=== PATIENT | male | born 1945 | race Caucasian/White ===

== ENCOUNTER 2023-08-16 07:08 | Outpatient (CLI) | payer OTHER | END 2023-08-16 07:17 | disposition home or self-care (01) | LOC: RX STUDY 07:08 | PROVIDERS: ATTEND Surgery | DX: C20 Malignant neoplasm of rectum (principal); R59.0 Localized enlarged lymph nodes; K62.89 Other specified diseases of anus and rectum; K62.5 Hemorrhage of anus and rectum; Z93.3 Colostomy status ==

== ENCOUNTER 2023-12-14 09:45 | Inpatient (IN) | payer OTHER ==
[~2023-12-14] VITALS: Ht 162.6 cm; Wt 70.3 kg
[2023-12-14] MEDS ORDERED: ATIVAN1 M1 (11:05)
[2023-12-14 11:15] LABS: HEMATOCRIT 35.9 % (39.0-48.0); HEMOGLOBIN 12.1 g/dL (13-16.00); MEAN CELL VOLUME 94.3 fL (80.0-100.00); MEAN CORPUSCULAR HEMOGLOBIN 31.9 pg (27.00-32.0); MEAN CORPUSCULAR HGB CONC 33.8 g/dl (32.0-36.0); PH,URINE 5.5 (5.0-8.0); PLATELET COUNT 249 K/uL (150-450); RED BLOOD COUNT 3.81 M/uL (4.00-6.00); RED CELL DISTRIBUTION WIDTH 14.4 % (11.5-14.5); URINE APPEARANCE Clear; URINE BILIRRUBIN Negative (NEGATIVE); URINE BLOOD Negative; URINE COLOR Yellow; URINE GLUCOSE Negative (NEGATIVE); URINE KETONE Negative (NEGATIVE); URINE LEUKOCYTE Negative; URINE NITRATE Negative; URINE PROTEIN Negative (NEGATIVE); URINE UROBILINOGEN 0.2 E.U./dl
[2023-12-14 11:20] LABS: URINE BACTERIA 18.8 uL (0.0-1933); URINE RBC 2.7 uL (0.0-20.8); URINE WBC 10.5 uL (0.0-23.2)
[2023-12-14 11:28] LABS: URINE CAST 1.22 uL (0.0-1.40)
[2023-12-14 11:44] LABS: INR 0.96; PARTIAL THROMBOPLASTIN TIME 28.7 SECONDS (22.0-34.0); PROTHROMBIN TIME 10.1 SECONDS (9.0-11.5)
[2023-12-14 12:08] LABS: BILIRUBIN TOTAL 0.41 mg/dL (0.3-1.2); CALCIUM 9.6 mg/dL (8.5-10.1); CREATININE SERUM 0.9 mg/dL (0.70-1.30); GFR 81.61; GLOBULINA 3.6 G/DL (2.4-3.5); POTASSIUM 4.3 mEq/L (3.5-5.1); TOTAL PROTEIN 7.6 gm/dL (6.4-8.2)
[2023-12-21] MEDS ORDERED: BUPROPION XL300 MG (08:08)
[2023-12-21] MEDS ORDERED: LATANOPROST2.5 ML (08:08)
[2023-12-21] MEDS ORDERED: SULINDAC200 MG (08:08)
[2023-12-21] MEDS ORDERED: ATORVASTATIN CA20 MG (08:09)
[2023-12-21] MEDS ORDERED: MEMANTINE HCL10 MG (08:09)
[2023-12-21] MEDS ORDERED: LOSARTAN POTASS25 MG (08:09)
[2023-12-21] MEDS ORDERED: LIDOCAINE HCL 2%/EPINEPHRINE 20ML VIAL IJ ONE (09:45)
[2023-12-21] MEDS ORDERED: METRONIDAZOLE/SODIUM CHLORIDE 500 MG/100 ML PIGGYBACK IV ONE (09:45)
[2023-12-21] MEDS ORDERED: CHLORHEXIDINE GLUCONATE 120 ML BOTTLE TOP ONE (09:45)
[2023-12-21] MEDS ORDERED: CEFTRIAXONE SODIUM 2,000 MG VIAL IV ONE (09:45)
[2023-12-21] MEDS ORDERED: BUPIVACAINE HCL/PF 0.25% 30ML VIAL InF ONE (09:45)
[2023-12-21] MEDS ORDERED: MORPHINE SULFATE 4 MG/ML CARTRIDGE IV PRN (12:30)
[2023-12-21] MEDS ORDERED: ONDANSETRON HCL 2 MG/ML VIAL IV PRN (12:30)
[2023-12-21] MEDS ORDERED: OxyCODONE HCL 5 MG TABLET (ROXICODONE) PO PRN (12:30)
[2023-12-21] MEDS ORDERED: RINGERS SOLUTION,LACTATED 1,000 ML IV SCH (12:30)
[2023-12-21] MEDS ORDERED: HYOSCYAMINE SULFATE 0.125 MG TAB.SUBL SL SCH (13:00)
[2023-12-21] MEDS ORDERED: SUGAMMADEX SODIUM 200 MG/2 ML VIAL IV ONE (16:30)
[2023-12-21] MEDS ORDERED: GABAPENTIN 300 MG CAPSULE PO SCH (17:00)
[2023-12-21] MEDS ORDERED: LACTOBACILLUS ACIDOPHILUS 1 CAP CAP PO SCH (17:00)
[2023-12-21] MEDS ORDERED: METRONIDAZOLE/SODIUM CHLORIDE 500 MG/100 ML PIGGYBACK IV SCH (17:00)
[2023-12-21] MEDS ORDERED: ACETAMINOPHEN 500 MG GEL..CAP PO SCH (18:00)
[2023-12-21] MEDS ORDERED: FAMOTIDINE/PF 20 MG/2 ML VIAL IV PUSH SCH (21:00)
[2023-12-21] MEDS ORDERED: CIPROFLOXACIN IN 5 % DEXTROSE 400 MG/200 ML PIGGYBAG IV SCH (21:00)
[2023-12-21] MEDS ORDERED: LORazepam 1 MG TABLET PO SCH (21:00)
[2023-12-22 08:19] LABS: HEMOGLOBIN 10.4 g/dL (13-16.00); MEAN CELL VOLUME 92.3 fL (80.0-100.00); MEAN CORPUSCULAR HEMOGLOBIN 32.1 pg (27.00-32.0); MEAN CORPUSCULAR HGB CONC 34.8 g/dl (32.0-36.0); PLATELET COUNT 220 K/uL (150-450); RED BLOOD COUNT 3.25 M/uL (4.00-6.00); RED CELL DISTRIBUTION WIDTH 13.7 % (11.5-14.5)
[2023-12-22 08:56] LABS: ALBUMIN 2.7 gm/dL (3.4-5.0); CALCIUM 8.2 mg/dL (8.5-10.1); CREATININE SERUM 0.85 mg/dL (0.70-1.30); GFR 87.17; MAGNESIUM 1.5 mg/dL (1.8-2.4); PHOSPHOROUS 3.1 mg/dL (2.5-4.9); POTASSIUM 3.91 mEq/L (3.5-5.1)
[2023-12-22] MEDS ORDERED: MEMANTINE HCL 10 MG TABLET PO SCH (09:00)
[2023-12-22] MEDS ORDERED: BUPROPION HCL 150 MG TABLET.SA PO SCH (09:00)
[2023-12-22] MEDS ORDERED: TAMSULOSIN HCL 0.4 MG CAP PO SCH (09:00)
[2023-12-22] MEDS ORDERED: LOSARTAN POTASSIUM 25 MG TABLET PO SCH (09:00)
[2023-12-22] MEDS ORDERED: MAGNESIUM SULFATE IN WATER 50 ML IV NR (10:45)
[2023-12-22] MEDS ORDERED: SOD FERRIC GLUC COMPLX/SUCROSE 62.5 MG in 0.9 % SODIUM CHLORIDE 50 ML IV SCH (12:00)
[2023-12-22] MEDS ORDERED: Cyanocobalamin/Mecobalamin 1 TAB.SL SL SCH (12:00)
[2023-12-22] MEDS ORDERED: ENOXAPARIN SODIUM 40 MG/0.4 ML SYRINGE SUBCUTANEO SCH (17:00)
[2023-12-23 08:36] LABS: HEMATOCRIT 26.7 % (39.0-48.0); HEMOGLOBIN 9.2 g/dL (13-16.00); MEAN CELL VOLUME 92.4 fL (80.0-100.00); MEAN CORPUSCULAR HEMOGLOBIN 31.9 pg (27.00-32.0); MEAN CORPUSCULAR HGB CONC 34.5 g/dl (32.0-36.0); PLATELET COUNT 190 K/uL (150-450); RED BLOOD COUNT 2.88 M/uL (4.00-6.00); RED CELL DISTRIBUTION WIDTH 14.2 % (11.5-14.5)
[2023-12-23 08:46] LABS: CALCIUM 8.5 mg/dL (8.5-10.1); CREATININE SERUM 0.88 mg/dL (0.70-1.30); GFR 83.75; MAGNESIUM 1.6 mg/dL (1.8-2.4); POTASSIUM 3.72 mEq/L (3.5-5.1)
[2023-12-23 08:58] LABS: PHOSPHOROUS 1.3 mg/dL (2.5-4.9)
[2023-12-23] MEDS ORDERED: ENOXAPARIN SODIUM 40 MG/0.4 ML SYRINGE SUBCUTANEO SCH (09:00)
[2023-12-23] MEDS ORDERED: MAGNESIUM SULFATE IN WATER 50 ML IV NR (09:30)
[2023-12-23] MEDS ORDERED: POTASSIUM PHOS,M-BASIC-D-BASIC 3 MM/ML VIAL IV NR (09:30)
[2023-12-23] MEDS ORDERED: AA 4.25%/CAL/LYTES/DEXT 5% 1,000 ML PERIFERAL SCH (17:45)
[2023-12-23] MEDS ORDERED: GABAPENTIN 300 MG CAPSULE PO SCH (21:00)
[2023-12-23 22:33] LABS: CALCIUM 8.1 mg/dL (8.5-10.1); CHOL HDL RATIO 1.4 (0-5.0); CREATININE SERUM 0.83 mg/dL (0.70-1.30); GFR 89.6; POTASSIUM 3.09 mEq/L (3.5-5.1)
[2023-12-24 06:51] LABS: HEMATOCRIT 28.9 % (39.0-48.0); MEAN CELL VOLUME 93.3 fL (80.0-100.00); MEAN CORPUSCULAR HEMOGLOBIN 32.4 pg (27.00-32.0); MEAN CORPUSCULAR HGB CONC 34.7 g/dl (32.0-36.0); PLATELET COUNT 218 K/uL (150-450); RED CELL DISTRIBUTION WIDTH 13.9 % (11.5-14.5)
[2023-12-24 07:18] LABS: CALCIUM 8.3 mg/dL (8.5-10.1); CREATININE SERUM 0.66 mg/dL (0.70-1.30); GFR 116.73; MAGNESIUM 2.1 mg/dL (1.8-2.4); POTASSIUM 3.25 mEq/L (3.5-5.1)
[2023-12-24 07:30] LABS: PHOSPHOROUS 1.6 mg/dL (2.5-4.9)
[2023-12-24] MEDS ORDERED: ENALAPRILAT DIHYDRATE 1.25 MG/ML VIAL IV PRN (10:15)
[2023-12-24] MEDS ORDERED: POTASSIUM PHOS,M-BASIC-D-BASIC 3 MM/ML VIAL IV NR (10:15)
[2023-12-24] MEDS ORDERED: AMINO ACIDS 4.25 %/DEXTROSE 5% 1,000 ML PERIFERAL SCH (17:00)
[2023-12-25] MEDS ORDERED: MORPHINE SULFATE 4 MG/ML CARTRIDGE IV PRN (03:00)
[2023-12-25] MEDS ORDERED: POTASSIUM PHOS,M-BASIC-D-BASIC 15 MM in 0.9 % SODIUM CHLORIDE 250 ML IV NR (13:15)
[2023-12-25] MEDS ORDERED: POTASSIUM CHLORIDE IN WATER 100 ML IV NR (15:59)
[2023-12-26 08:56] LABS: HEMATOCRIT 30.4 % (39.0-48.0); HEMOGLOBIN 10.4 g/dL (13-16.00); MEAN CELL VOLUME 94.1 fL (80.0-100.00); MEAN CORPUSCULAR HEMOGLOBIN 32.1 pg (27.00-32.0); MEAN CORPUSCULAR HGB CONC 34.2 g/dl (32.0-36.0); PLATELET COUNT 274 K/uL (150-450); RED BLOOD COUNT 3.23 M/uL (4.00-6.00); RED CELL DISTRIBUTION WIDTH 13.9 % (11.5-14.5)
[2023-12-26 09:45] LABS: CALCIUM 8.5 mg/dL (8.5-10.1); CREATININE SERUM 0.69 mg/dL (0.70-1.30); GFR 110.89; MAGNESIUM 2.2 mg/dL (1.8-2.4); PHOSPHOROUS 2.9 mg/dL (2.5-4.9); POTASSIUM 3.39 mEq/L (3.5-5.1)
[2023-12-26] MEDS ORDERED: POTASSIUM CHLORIDE IN WATER 100 ML IV NR (14:00)
[2023-12-27] MEDS ORDERED: MORPHINE SULFATE 4 MG/ML CARTRIDGE IV PRN (08:30)
[2023-12-27 09:49] LABS: CALCIUM 8.5 mg/dL (8.5-10.1); CREATININE SERUM 0.66 mg/dL (0.70-1.30); GFR 116.73; MAGNESIUM 2.1 mg/dL (1.8-2.4); PHOSPHOROUS 2.7 mg/dL (2.5-4.9); POTASSIUM 3.91 mEq/L (3.5-5.1)
[2023-12-27] MEDS ORDERED: [UNRECOGNIZED DRUG - SUPPLY] IJ SCH (20:00)
[2023-12-27] MEDS ORDERED: TPN (Para identificar pt. en TPN) IV SCH (20:00)
[2023-12-28 09:59] LABS: CALCIUM 8.8 mg/dL (8.5-10.1); CREATININE SERUM 0.65 mg/dL (0.70-1.30); GFR 118.8; MAGNESIUM 2.2 mg/dL (1.8-2.4); PHOSPHOROUS 3.1 mg/dL (2.5-4.9); POTASSIUM 3.72 mEq/L (3.5-5.1)
[2023-12-29 11:30] LABS: CALCIUM 9.3 mg/dL (8.5-10.1); CREATININE SERUM 0.64 mg/dL (0.70-1.30); GFR 120.95; PHOSPHOROUS 2.6 mg/dL (2.5-4.9); POTASSIUM 3.3 mEq/L (3.5-5.1)
[2023-12-29] MEDS ORDERED: POTASSIUM CHLORIDE IN WATER 100 ML IV STA (11:37)
[2023-12-30 07:28] LABS: HEMATOCRIT 31.7 % (39.0-48.0); HEMOGLOBIN 11.1 g/dL (13-16.00); MEAN CELL VOLUME 93.4 fL (80.0-100.00); MEAN CORPUSCULAR HEMOGLOBIN 32.7 pg (27.00-32.0); PLATELET COUNT 303 K/uL (150-450); RED CELL DISTRIBUTION WIDTH 13.9 % (11.5-14.5)
[2023-12-30] MEDS ORDERED: ENOXAPARIN SODIUM 40 MG/0.4 ML SYRINGE SUBCUTANEO SCH (17:00)
[2023-12-31 06:49] LABS: HEMATOCRIT 33.8 % (39.0-48.0); HEMOGLOBIN 11.8 g/dL (13-16.00); MEAN CELL VOLUME 91.9 fL (80.0-100.00); MEAN CORPUSCULAR HEMOGLOBIN 31.9 pg (27.00-32.0); MEAN CORPUSCULAR HGB CONC 34.8 g/dl (32.0-36.0); PLATELET COUNT 344 K/uL (150-450); RED BLOOD COUNT 3.68 M/uL (4.00-6.00); RED CELL DISTRIBUTION WIDTH 13.8 % (11.5-14.5)
[2023-12-31 07:06] LABS: INR < 0.93; PARTIAL THROMBOPLASTIN TIME 28.1 SECONDS (22.0-34.0); PROTHROMBIN TIME 9.8 SECONDS (9.0-11.5)
[2023-12-31 07:22] LABS: ALBUMIN 2.9 gm/dL (3.4-5.0); BILIRUBIN TOTAL 0.58 mg/dL (0.3-1.2); BILIRUBIN,CONJUGATED 0.29 mg/dL (0.0-0.2); BILIRUBIN,UNCONJUGATED 0.29 mg/dL (0.0-0.6); CALCIUM 8.9 mg/dL (8.5-10.1); CHOL HDL RATIO 2.4 (0-5.0); CREATININE SERUM 0.72 mg/dL (0.70-1.30); GFR 105.58; GLOBULINA 3.7 G/DL (2.4-3.5); POTASSIUM 3.03 mEq/L (3.5-5.1); TOTAL PROTEIN 6.6 gm/dL (6.4-8.2)
[2023-12-31 10:52] LABS: UREA CLEARANCE 25.7 ML/MIN
[2023-12-31] MEDS ORDERED: ONDANSETRON HCL 2 MG/ML VIAL IV PRN (17:15)
[2023-12-31] MEDS ORDERED: POTASSIUM CHLORIDE IN WATER 100 ML IV ONE (20:45)
[2023-12-31] MEDS ORDERED: MORPHINE SULFATE 4 MG/ML CARTRIDGE IV PRN (21:00)
[2023-12-31] MEDS ORDERED: POTASSIUM CHLORIDE IN WATER 40 MEQ/100 ML PIGGYBAG IV ONE (21:09)
[2024-01-01] MEDS ORDERED: ACETAMINOPHEN 500 MG GEL..CAP PO SCH (08:00)
[2024-01-01] MEDS ORDERED: DIATRIZOATE MEGLUMINE, SODIUM 30 ML BOTTLE PO NR (08:15)
[2024-01-01] MEDS ORDERED: GABAPENTIN 300 MG CAPSULE PO SCH (09:00)
[2024-01-02 07:23] LABS: CALCIUM 9.5 mg/dL (8.5-10.1); CREATININE SERUM 0.85 mg/dL (0.70-1.30); GFR 87.17; PHOSPHOROUS 3.1 mg/dL (2.5-4.9)
[2024-01-02 07:41] LABS: POTASSIUM 2.96 mEq/L (3.5-5.1)
[2024-01-02] MEDS ORDERED: POTASSIUM CHLORIDE IN WATER 100 ML IV NR (14:00)
[2024-01-02] MEDS ORDERED: POTASSIUM CHLORIDE IN WATER 100 ML IV ONE (14:00)
[2024-01-03 07:57] LABS: HEMATOCRIT 37.2 % (39.0-48.0); HEMOGLOBIN 12.8 g/dL (13-16.00); MEAN CELL VOLUME 92.7 fL (80.0-100.00); MEAN CORPUSCULAR HGB CONC 34.5 g/dl (32.0-36.0); PLATELET COUNT 432 K/uL (150-450); RED BLOOD COUNT 4.02 M/uL (4.00-6.00); RED CELL DISTRIBUTION WIDTH 13.4 % (11.5-14.5)
[2024-01-03 08:22] LABS: INR < 0.93; PROTHROMBIN TIME 9.8 SECONDS (9.0-11.5)
[2024-01-03 08:35] LABS: PARTIAL THROMBOPLASTIN TIME < 20.0 SECONDS (22.0-34.0)
[2024-01-03 08:46] LABS: CALCIUM 10.1 mg/dL (8.5-10.1); CREATININE SERUM 1.06 mg/dL (0.70-1.30); GFR 67.57; POTASSIUM 3.73 mEq/L (3.5-5.1)
[2024-01-03] MEDS ORDERED: METRONIDAZOLE/SODIUM CHLORIDE 500 MG/100 ML PIGGYBACK IV ONE (09:48)
[2024-01-03] MEDS ORDERED: CEFTRIAXONE SODIUM 2,000 MG VIAL ONE (09:48)
[2024-01-03] MEDS ORDERED: LIDOCAINE HCL 1%/EPINEPHRINE 20ML VIAL IJ ONE ×2 (09:49→10:45)
[2024-01-03] MEDS ORDERED: BUPIVACAINE HCL/MPF 0.5% 30ML VIAL ONE (09:49)
[2024-01-03] MEDS ORDERED: CHLORHEXIDINE GLUCONATE 120 ML BOTTLE TOP ONE (09:53)
[2024-01-03] MEDS ORDERED: CEFTRIAXONE SODIUM 2,000 MG VIAL IV SCH (10:30)
[2024-01-03] MEDS ORDERED: METRONIDAZOLE/SODIUM CHLORIDE 500 MG/100 ML PIGGYBACK IV SCH ×2 (10:30→17:00)
[2024-01-03] MEDS ORDERED: BUPIVACAINE HCL 30 ML VIAL IJ ONE (10:45)
[2024-01-03] MEDS ORDERED: SUGAMMADEX SODIUM 200 MG/2 ML VIAL IV ONE ×2 (11:54→12:30)
[2024-01-03] MEDS ORDERED: MORPHINE SULFATE 4 MG/ML CARTRIDGE IV PRN (12:15)
[2024-01-03] MEDS ORDERED: CIPROFLOXACIN IN 5 % DEXTROSE 400 MG/200 ML PIGGYBAG IV NR (12:45)
[2024-01-03] MEDS ORDERED: CIPROFLOXACIN IN 5 % DEXTROSE 400 MG/200 ML PIGGYBAG IV SCH (21:00)
[2024-01-03] MEDS ORDERED: FAT EMULSIONS 250 ML IV SCH (21:45)
[2024-01-03] MEDS ORDERED: AMINO ACIDS 4.25 %/DEXTROSE 5% 1,000 ML PERIFERAL SCH (21:45)
[2024-01-04 06:35] LABS: HEMATOCRIT 28.7 % (39.0-48.0); MEAN CELL VOLUME 94.4 fL (80.0-100.00); MEAN CORPUSCULAR HEMOGLOBIN 32.5 pg (27.00-32.0); MEAN CORPUSCULAR HGB CONC 34.5 g/dl (32.0-36.0); PLATELET COUNT 287 K/uL (150-450); RED BLOOD COUNT 3.04 M/uL (4.00-6.00); RED CELL DISTRIBUTION WIDTH 13.5 % (11.5-14.5)
[2024-01-04 06:37] LABS: HEMOGLOBIN 9.9 g/dL (13-16.00)
[2024-01-04 07:22] LABS: CALCIUM 8.1 mg/dL (8.5-10.1); CREATININE SERUM 0.87 mg/dL (0.70-1.30); GFR 84.87; MAGNESIUM 1.5 mg/dL (1.8-2.4); PHOSPHOROUS 2.2 mg/dL (2.5-4.9); POTASSIUM 3.27 mEq/L (3.5-5.1)
[2024-01-04] MEDS ORDERED: POTASSIUM CHLORIDE IN WATER 100 ML IV NR (16:15)
[2024-01-04] MEDS ORDERED: POTASSIUM PHOS,M-BASIC-D-BASIC 15 MM in 0.9 % SODIUM CHLORIDE 250 ML IV ONE (17:00)
[2024-01-04] MEDS ORDERED: SOD FERRIC GLUC COMPLX/SUCROSE 62.5 MG in 0.9 % SODIUM CHLORIDE 50 ML IV SCH (17:00)
[2024-01-05 15:34] LABS: HEMATOCRIT 28.9 % (39.0-48.0); HEMOGLOBIN 9.8 g/dL (13-16.00); MEAN CELL VOLUME 93.4 fL (80.0-100.00); MEAN CORPUSCULAR HEMOGLOBIN 31.6 pg (27.00-32.0); MEAN CORPUSCULAR HGB CONC 33.9 g/dl (32.0-36.0); PLATELET COUNT 284 K/uL (150-450); RED BLOOD COUNT 3.09 M/uL (4.00-6.00); RED CELL DISTRIBUTION WIDTH 13.7 % (11.5-14.5)
[2024-01-05 15:48] LABS: CALCIUM 8.6 mg/dL (8.5-10.1); CREATININE SERUM 0.69 mg/dL (0.70-1.30); GFR 110.89; MAGNESIUM 1.6 mg/dL (1.8-2.4); PHOSPHOROUS 2.1 mg/dL (2.5-4.9); POTASSIUM 3.96 mEq/L (3.5-5.1)
[2024-01-06] MEDS ORDERED: POTASSIUM PHOS,M-BASIC-D-BASIC 18 MM in 0.9 % SODIUM CHLORIDE 250 ML IV NR (12:04)
[2024-01-06] MEDS ORDERED: MAGNESIUM SULFATE IN WATER 4 GM/100 ML PIGGYBACK IV NR (12:05)
[2024-01-07 06:57] LABS: INR 0.94; PARTIAL THROMBOPLASTIN TIME 29.8 SECONDS (22.0-34.0); PROTHROMBIN TIME 9.9 SECONDS (9.0-11.5)
[2024-01-07 07:33] LABS: ALBUMIN 2.9 gm/dL (3.4-5.0); BILIRUBIN TOTAL 0.57 mg/dL (0.3-1.2); BILIRUBIN,CONJUGATED 0.2 mg/dL (0.0-0.2); BILIRUBIN,UNCONJUGATED 0.37 mg/dL (0.0-0.6); CHOL HDL RATIO 2.5 (0-5.0); CREATININE SERUM 0.78 mg/dL (0.70-1.30); GFR 96.26; MAGNESIUM 2.3 mg/dL (1.8-2.4); POTASSIUM 4.07 mEq/L (3.5-5.1); TOTAL PROTEIN 6.8 gm/dL (6.4-8.2)
[2024-01-07 12:02] LABS: UREA CLEARANCE 33.9 ML/MIN
[2024-01-08 06:42] LABS: ALBUMIN 2.9 gm/dL (3.4-5.0); BILIRUBIN TOTAL 0.63 mg/dL (0.3-1.2); CALCIUM 9.4 mg/dL (8.5-10.1); CREATININE SERUM 1.06 mg/dL (0.70-1.30); GFR 67.57; POTASSIUM 4.54 mEq/L (3.5-5.1); TOTAL PROTEIN 6.9 gm/dL (6.4-8.2)
[2024-01-08] MEDS ORDERED: CHOLESTYRAMINE/ASPARTAME LIGHT 4 G/PKT PACKET PO SCH (09:00)
[2024-01-09 08:37] LABS: CREATININE SERUM 1.03 mg/dL (0.70-1.30); GFR 69.84; POTASSIUM 4.53 mEq/L (3.5-5.1)
[2024-01-09] MEDS ORDERED: LOPERAMIDE HCL 2 MG CAPSULE PO SCH (17:00)
[2024-01-10] MEDS ORDERED: LOPERAMIDE HCL 2 MG CAPSULE PO SCH (13:00)
[2024-01-11] MEDS ORDERED: LOPERAMIDE HCL 2 MG CAPSULE PO SCH (09:00)
[2024-01-12 09:06] LABS: HEMATOCRIT 32.3 % (39.0-48.0); HEMOGLOBIN 11.1 g/dL (13-16.00); MEAN CELL VOLUME 92.9 fL (80.0-100.00); MEAN CORPUSCULAR HGB CONC 34.4 g/dl (32.0-36.0); PLATELET COUNT 391 K/uL (150-450); RED BLOOD COUNT 3.48 M/uL (4.00-6.00); RED CELL DISTRIBUTION WIDTH 13.9 % (11.5-14.5)
[2024-01-12 09:29] LABS: CALCIUM 9.9 mg/dL (8.5-10.1); CREATININE SERUM 1.21 mg/dL (0.70-1.30); POTASSIUM 4.98 mEq/L (3.5-5.1)
[2024-01-13] MEDS ORDERED: LOPERAMIDE2 MG PO (11:47)
[2024-01-13] MEDS ORDERED: CHOLESTYRAMINE L4 GM PO (11:47)
[2024-01-13] MEDS ORDERED: INTESTINEX680 M1 PO (11:48)
== END 2024-01-13 15:20 | disposition home or self-care (01) | DRG 329 ==
LOC: SURH 12-21 05:10 → O/R 12-21 05:10 → SURH 12-21 09:00
PROVIDERS: Internal Medicine; Internal Medicine Geriatric Medicine; Specialist; Surgery; ADMIT Surgery; ATTEND Surgery
PROC: 0DBE0ZZ Excision of Large Intestine, Open Approach (ICD-10-PCS; principal; 2023-12-22)
PROC: 0DNW4ZZ Release Peritoneum, Percutaneous Endoscopic Approach (ICD-10-PCS; 2023-12-22)
PROC: 0DQ80ZZ Repair Small Intestine, Open Approach (ICD-10-PCS; 2023-12-22)
PROC: 0DBU0ZZ Excision of Omentum, Open Approach (ICD-10-PCS; 2023-12-22)
PROC: 0WQF0ZZ Repair Abdominal Wall, Open Approach (ICD-10-PCS; 2023-12-22)
PROC: 0DTJ0ZZ Resection of Appendix, Open Approach (ICD-10-PCS; 2023-12-22)
PROC: 0DB80ZZ Excision of Small Intestine, Open Approach (ICD-10-PCS; 2023-12-22)
PROC: 0D1B0Z4 Bypass Ileum to Cutaneous, Open Approach (ICD-10-PCS; 2023-12-22)
PROC: 0DBP0ZZ Excision of Rectum, Open Approach (ICD-10-PCS; 2023-12-22)
PROC: 0DJD8ZZ Inspection of Lower Intestinal Tract, Via Natural or Artificial Opening Endoscopic (ICD-10-PCS; 2023-12-22)
PROC: 02HV33Z Insertion of Infusion Device into Superior Vena Cava, Percutaneous Approach (ICD-10-PCS; 2023-12-24)
PROC: BW21YZZ Computerized Tomography (CT Scan) of Abdomen and Pelvis using Other Contrast (ICD-10-PCS; 2024-01-01)
PROC: 0DNW4ZZ Release Peritoneum, Percutaneous Endoscopic Approach (ICD-10-PCS; 2024-01-03)
PROC: 0DQ84ZZ Repair Small Intestine, Percutaneous Endoscopic Approach (ICD-10-PCS; 2024-01-03)
PROC: 0WQF0ZZ Repair Abdominal Wall, Open Approach (ICD-10-PCS; 2024-01-03)
PROC: 0DJD4ZZ Inspection of Lower Intestinal Tract, Percutaneous Endoscopic Approach (ICD-10-PCS; 2024-01-03)
DX: C20 Malignant neoplasm of rectum (principal); K65.8 Other peritonitis; K43.0 Incisional hernia with obstruction, without gangrene; K62.5 Hemorrhage of anus and rectum; K91.89 Other postprocedural complications and disorders of digestive system; K91.31 Postprocedural partial intestinal obstruction; R59.0 Localized enlarged lymph nodes; K43.5 Parastomal hernia without obstruction or gangrene; Z53.31 Laparoscopic surgical procedure converted to open procedure; E87.6 Hypokalemia; D64.9 Anemia, unspecified; K66.0 Peritoneal adhesions (postprocedural) (postinfection)

== ENCOUNTER 2024-01-15 13:32 | Inpatient (IN) | payer OTHER ==
[~2024-01-15] VITALS: Ht 162.6 cm; Wt 149.7 kg
[~2024-01-15 13:32] MED LIST: ATIVAN1 M1; ATORVASTATIN CA20 MG; BUPROPION XL300 MG; CHOLESTYRAMINE L4 GM PO; INTESTINEX680 M1 PO; LATANOPROST2.5 ML; LOPERAMIDE2 MG PO; LOSARTAN POTASS25 MG; MEMANTINE HCL10 MG; SULINDAC200 MG
[2024-01-15] MEDS ORDERED: INTESTINEX680 M1 PO (13:43)
[2024-01-15] MEDS ORDERED: 0.9 % SODIUM CHLORIDE 500 ML IV ONE (14:45)
[2024-01-15] MEDS ORDERED: FAMOTIDINE/PF 20 MG/2 ML VIAL IV ONE (14:45)
[2024-01-15] MEDS ORDERED: ONDANSETRON HCL 2 MG/ML VIAL IV ONE (14:45)
[2024-01-15 15:45] LABS: HEMATOCRIT 36.8 % (39.0-48.0); HEMOGLOBIN 12.8 g/dL (13-16.00); MEAN CORPUSCULAR HEMOGLOBIN 32.4 pg (27.00-32.0); MEAN CORPUSCULAR HGB CONC 34.9 g/dl (32.0-36.0); PLATELET COUNT 475 K/uL (150-450); RED BLOOD COUNT 3.96 M/uL (4.00-6.00); RED CELL DISTRIBUTION WIDTH 14.2 % (11.5-14.5)
[2024-01-15 16:15] LABS: ALBUMIN 4.1 gm/dL (3.4-5.0); BILIRUBIN TOTAL 0.54 mg/dL (0.3-1.2); CALCIUM 9.9 mg/dL (8.5-10.1); TOTAL PROTEIN 9.1 gm/dL (6.4-8.2)
[2024-01-15 16:18] LABS: GFR 13.83
[2024-01-15 16:22] LABS: POTASSIUM 6.07 mEq/L (3.5-5.1)
[2024-01-15 16:23] LABS: CREATININE SERUM 4.19 mg/dL (0.70-1.30)
[2024-01-15] MEDS ORDERED: CALCIUM GLUCONATE 100 MG/ML VIAL IV ONE (17:00)
[2024-01-15 17:09] LABS: URINE APPEARANCE Clear; URINE BILIRRUBIN Negative (NEGATIVE); URINE BLOOD Negative; URINE COLOR Dark Yellow; URINE GLUCOSE Negative (NEGATIVE); URINE KETONE Trace (NEGATIVE); URINE LEUKOCYTE Negative; URINE NITRATE Negative; URINE PROTEIN 30 (NEGATIVE); URINE UROBILINOGEN 0.2 E.U./dl
[2024-01-15 17:13] LABS: URINE BACTERIA 65.5 uL (0.0-1933); URINE CAST 10.22 uL (0.0-1.40); URINE EPITHELIAL CELLS 8.3 uL (0.0-38.8); URINE RBC 20.7 uL (0.0-20.8); URINE WBC 9.1 uL (0.0-23.2)
[2024-01-15 17:33] LABS: URINE CRYSTALS FEW /HPF
[2024-01-15] MEDS ORDERED: FAMOTIDINE/PF 20 MG/2 ML VIAL IV SCH (21:51)
[2024-01-15] MEDS ORDERED: SODIUM CL 0.9% 25 ML IV.SOLN. IV SCH (22:00)
[2024-01-16 06:45] LABS: CALCIUM 9.4 mg/dL (8.5-10.1); CREATININE SERUM 3.68 mg/dL (0.70-1.30); GFR 16.07; POTASSIUM 4.86 mEq/L (3.5-5.1)
[2024-01-16] MEDS ORDERED: hydrALAZINE HCL 20 MG VIAL IV PRN (16:30)
[2024-01-17 05:22] LABS: HEMATOCRIT 34.5 % (39.0-48.0); MEAN CELL VOLUME 92.9 fL (80.0-100.00); MEAN CORPUSCULAR HEMOGLOBIN 31.5 pg (27.00-32.0); MEAN CORPUSCULAR HGB CONC 33.9 g/dl (32.0-36.0); PLATELET COUNT 396 K/uL (150-450); RED BLOOD COUNT 3.71 M/uL (4.00-6.00); RED CELL DISTRIBUTION WIDTH 13.8 % (11.5-14.5)
[2024-01-17 05:24] LABS: HEMOGLOBIN 11.7 g/dL (13-16.00)
[2024-01-17 05:43] LABS: ALBUMIN 3.4 gm/dL (3.4-5.0); BILIRUBIN TOTAL 0.62 mg/dL (0.3-1.2); CALCIUM 9.2 mg/dL (8.5-10.1); CREATININE SERUM 2.6 mg/dL (0.70-1.30); GFR 23.99; GLOBULINA 4.1 G/DL (2.4-3.5); POTASSIUM 5.29 mEq/L (3.5-5.1); TOTAL PROTEIN 7.5 gm/dL (6.4-8.2)
[2024-01-17] MEDS ORDERED: LOSARTAN POTASSIUM 25 MG TABLET PO SCH (09:00)
[2024-01-17] MEDS ORDERED: FAMOTIDINE/PF 20 MG/2 ML VIAL IV SCH (09:00)
[2024-01-17] MEDS ORDERED: MEMANTINE HCL 10 MG TABLET PO SCH (09:00)
[2024-01-17] MEDS ORDERED: TAMSULOSIN HCL 0.4 MG CAP PO SCH (16:31)
[2024-01-17] MEDS ORDERED: LOPERAMIDE HCL 2 MG CAPSULE PO SCH (17:00)
[2024-01-18 04:42] LABS: HEMATOCRIT 32.6 % (39.0-48.0); HEMOGLOBIN 11.2 g/dL (13-16.00); MEAN CORPUSCULAR HEMOGLOBIN 31.3 pg (27.00-32.0); MEAN CORPUSCULAR HGB CONC 34.4 g/dl (32.0-36.0); PLATELET COUNT 358 K/uL (150-450); RED BLOOD COUNT 3.58 M/uL (4.00-6.00)
[2024-01-18 05:20] LABS: ALBUMIN 3.4 gm/dL (3.4-5.0); BILIRUBIN TOTAL 0.59 mg/dL (0.3-1.2); CALCIUM 9.3 mg/dL (8.5-10.1); CREATININE SERUM 1.85 mg/dL (0.70-1.30); GFR 35.53; GLOBULINA 3.9 G/DL (2.4-3.5); MAGNESIUM 1.9 mg/dL (1.8-2.4); PHOSPHOROUS 3.5 mg/dL (2.5-4.9); TOTAL PROTEIN 7.3 gm/dL (6.4-8.2)
[2024-01-18 05:21] LABS: POTASSIUM 5.99 mEq/L (3.5-5.1)
[2024-01-18] MEDS ORDERED: SODIUM POLYSTYRENE SULFONATE 15 G/4 TSP TSP PO SCH (17:00)
[2024-01-19 11:47] LABS: ALBUMIN 3.1 gm/dL (3.4-5.0); BILIRUBIN TOTAL 0.51 mg/dL (0.3-1.2); CREATININE SERUM 1.28 mg/dL (0.70-1.30); GFR 54.35; POTASSIUM 4.54 mEq/L (3.5-5.1); TOTAL PROTEIN 7.1 gm/dL (6.4-8.2)
[2024-01-19] MEDS ORDERED: 0.9 % SODIUM CHLORIDE 1,000 ML IV SCH (20:30)
[2024-01-19] MEDS ORDERED: SODIUM CL 0.9% 25 ML IV.SOLN. IV SCH (22:00)
[2024-01-21 06:56] LABS: HEMATOCRIT 25.6 % (39.0-48.0); MEAN CELL VOLUME 92.4 fL (80.0-100.00); MEAN CORPUSCULAR HGB CONC 34.6 g/dl (32.0-36.0); PLATELET COUNT 250 K/uL (150-450); RED BLOOD COUNT 2.77 M/uL (4.00-6.00)
[2024-01-21 06:57] LABS: MEAN CORPUSCULAR HEMOGLOBIN 32.1 pg (27.00-32.0)
[2024-01-21 06:58] LABS: HEMOGLOBIN 8.9 g/dL (13-16.00)
[2024-01-21 07:38] LABS: CALCIUM 8.5 mg/dL (8.5-10.1); CREATININE SERUM 1.02 mg/dL (0.70-1.30); GFR 70.63; PHOSPHOROUS 2.8 mg/dL (2.5-4.9); POTASSIUM 4.58 mEq/L (3.5-5.1)
[2024-01-21 08:03] LABS: MAGNESIUM 1.2 mg/dL (1.8-2.4)
[2024-01-21] MEDS ORDERED: LOPERAMIDE HCL 2 MG CAPSULE PO SCH (17:00)
== END 2024-01-22 09:41 | disposition home or self-care (01) | DRG 684 ==
LOC: ER → SEC-K 01-16 10:58 → MEDI 01-16 17:01 → SURH 01-20 11:27
PROVIDERS: Internal Medicine; Internal Medicine Geriatric Medicine; Nurse Practitioner Family; Student in an Organized Health Care Education/Training Program; Surgery; ADMIT Surgery; ATTEND Surgery
PROC: B24BZZZ Ultrasonography of Heart with Aorta (ICD-10-PCS; 2024-01-16)
PROC: 4A12X4Z Monitoring of Cardiac Electrical Activity, External Approach (ICD-10-PCS; 2024-01-16)
PROC: BW40ZZZ Ultrasonography of Abdomen (ICD-10-PCS; principal; 2024-01-17)
DX: N17.9 Acute kidney failure, unspecified (principal); E86.0 Dehydration; K57.30 Diverticulosis of large intestine without perforation or abscess without bleeding; E87.5 Hyperkalemia; N18.9 Chronic kidney disease, unspecified

== ENCOUNTER 2024-02-05 10:40 | Inpatient (IN) | payer OTHER ==
[~2024-02-05] VITALS: Ht 152.4 cm; Wt 61.7 kg
[2024-02-05] MEDS ORDERED: 0.9 % SODIUM CHLORIDE 1,000 ML IV STA (13:22)
--- NOTE | 2024-02-05 13:22 | NUR ---
PTE ALERTA Y ORIENTADO X3 EN COMPANAI DE FAMILIAR REFIERE VENIR DEBIDO A QUE EL MISMOHA ESTADO TENEINDO DEBILIDAD, BRADFORD ESTADO VOMITANDO E HIPOTENSION. PTE EXPRESA QUE EL ESTUVO ADMITIDO POR FALLO RENAL HACE 2 SEMANAS. SE REALIZA EKG EL CUAL ES PRESENTADO A DR INFANZO Y EL MSMO INDICA QUE SE ACOMODE EN JAVIER. SE MIDEN S/V Y SE UBICA.
[2024-02-05] MEDS ORDERED: FAMOtidine 10 MG/ML (4ML VIAL) IV PUSH STA (13:23)
[2024-02-05] MEDS ORDERED: ONDANSETRON HCL 2 MG/ML VIAL IV ONE (13:30)
[2024-02-05] MEDS ORDERED: FAMOTIDINE/PF 20 MG/2 ML VIAL ONE (13:43)
[2024-02-05] MEDS ORDERED: ONDANSETRON HCL 2 MG/ML VIAL ONE (13:43)
[2024-02-05 14:10] LABS: HEMATOCRIT 36.7 % (39.0-48.0); HEMOGLOBIN 12.8 g/dL (13-16.00); MEAN CELL VOLUME 89.1 fL (80.0-100.00); MEAN CORPUSCULAR HGB CONC 34.8 g/dl (32.0-36.0); PLATELET COUNT 348 K/uL (150-450); RED BLOOD COUNT 4.12 M/uL (4.00-6.00); RED CELL DISTRIBUTION WIDTH 13.7 % (11.5-14.5)
--- NOTE | 2024-02-05 14:17 | NUR ---
PTE ALERTA Y ORIENTADO X3 RN FRANCO LE ORIENTA SOBRE TX MEDICO LO CUAL REFIERE ENTENDER Y ACEPTAR. SE LE ADMINISTRA MEDICAMENTOS MALU ORDEN MEDICA Y SE LE REALIZA MUESTRAS DE LAB BAJO MEDIDAS ASEPTICAS
[2024-02-05 15:00] LABS: BILIRUBIN TOTAL 0.55 mg/dL (0.3-1.2); BILIRUBIN,CONJUGATED 0.19 mg/dL (0.0-0.2); BILIRUBIN,UNCONJUGATED 0.36 mg/dL (0.0-0.6); CALCIUM 9.7 mg/dL (8.5-10.1); CREATININE SERUM 2.74 mg/dL (0.70-1.30); GFR 22.58; POTASSIUM 4.19 mEq/L (3.5-5.1); TOTAL PROTEIN 8.7 gm/dL (6.4-8.2)
[2024-02-05 16:55] LABS: PH,URINE 5.5 (5.0-8.0); URINE APPEARANCE Turbid; URINE BILIRRUBIN Negative (NEGATIVE); URINE BLOOD Negative; URINE COLOR Yellow; URINE GLUCOSE Negative (NEGATIVE); URINE KETONE Negative (NEGATIVE); URINE LEUKOCYTE Negative; URINE NITRATE Negative; URINE PROTEIN 30 (NEGATIVE); URINE UROBILINOGEN 0.2 E.U./dl
[2024-02-05 16:56] LABS: URINE BACTERIA 40.3 uL (0.0-1933); URINE CAST 7.93 uL (0.0-1.40); URINE EPITHELIAL CELLS 10.9 uL (0.0-38.8); URINE RBC 9.7 uL (0.0-20.8); URINE WBC 25.8 uL (0.0-23.2)
[2024-02-05] MEDS ORDERED: 0.9 % SODIUM CHLORIDE 1,000 ML IV SCH (19:00)
[2024-02-05] MEDS ORDERED: ACETAMINOPHEN 500 MG GEL..CAP PO PRN (19:00)
[2024-02-05 20:11] LABS: INR 1.09; PARTIAL THROMBOPLASTIN TIME 29.1 SECONDS (22.0-34.0); PROTHROMBIN TIME 11.8 SECONDS (9.0-11.5)
[2024-02-06 00:17] VITALS: BP 117/62; O2SAT 99
[2024-02-06 03:19] VITALS: BP 122/68; O2SAT 100
[2024-02-06] MEDS ORDERED: FAMOTIDINE/PF 20 MG/2 ML VIAL ONE ×2 (08:39→19:59)
[2024-02-06] MEDS ORDERED: VITAMIN B COMPLEX/LYSINE 1 ML ML PO SCH ×2 (09:00→17:00)
[2024-02-06] MEDS ORDERED: FAMOTIDINE/PF 20 MG in 0.9 % SODIUM CHLORIDE 8 ML IV PUSH SCH ×2 (09:00→21:00)
[2024-02-06] MEDS ORDERED: MEMANTINE HCL 10 MG TABLET PO SCH (09:00)
[2024-02-06] MEDS ORDERED: ENOXAPARIN SODIUM 30 MG/0.3 ML SYRINGE SUBCUTANEO SCH (09:00)
[2024-02-06] MEDS ORDERED: FOLIC ACID 1 MG TABLET PO SCH (09:00)
[2024-02-06] MEDS ORDERED: LOSARTAN POTASSIUM 25 MG TABLET PO SCH (09:00)
[2024-02-06] MEDS ORDERED: ATORVASTATIN CALCIUM 20 MG TABLET PO SCH (09:00)
[2024-02-06 09:17] VITALS: BP 85/50
[2024-02-06 09:18] VITALS: BP 90/50
[2024-02-06] MEDS ORDERED: PANTOPRAZOLE SODIUM 40 MG TABLET.DR PO SCH (17:00)
[2024-02-06] MEDS ORDERED: TAMSULOSIN HCL 0.4 MG CAP PO SCH (17:00)
[2024-02-06 18:04] VITALS: BP 93/53
[2024-02-07 01:40] VITALS: BP 100/55; O2SAT 100
[2024-02-07 09:06] LABS: HEMATOCRIT 28.3 % (39.0-48.0); MEAN CELL VOLUME 91.3 fL (80.0-100.00); PLATELET COUNT 211 K/uL (150-450); RED CELL DISTRIBUTION WIDTH 13.6 % (11.5-14.5)
[2024-02-07 09:13] LABS: HEMOGLOBIN 9.6 g/dL (13-16.00); MEAN CORPUSCULAR HEMOGLOBIN 30.9 pg (27.00-32.0)
[2024-02-07 09:17] VITALS: BP 95/52
[2024-02-07 09:40] LABS: CALCIUM 7.9 mg/dL (8.5-10.1); CREATININE SERUM 1.52 mg/dL (0.70-1.30); GFR 44.57; POTASSIUM 4.09 mEq/L (3.5-5.1)
[2024-02-07 17:40] VITALS: BP 86/52
[2024-02-08 02:28] VITALS: BP 100/54; O2SAT 100
[2024-02-08 06:57] VITALS: BP 107/62; O2SAT 100
[2024-02-08 08:16] LABS: HEMATOCRIT 29.6 % (39.0-48.0); HEMOGLOBIN 9.9 g/dL (13-16.00); MEAN CORPUSCULAR HEMOGLOBIN 30.8 pg (27.00-32.0); MEAN CORPUSCULAR HGB CONC 33.5 g/dl (32.0-36.0); PLATELET COUNT 217 K/uL (150-450); RED BLOOD COUNT 3.21 M/uL (4.00-6.00)
[2024-02-08] MEDS ORDERED: FAMOTIDINE/PF 20 MG/2 ML VIAL ONE ×2 (08:24→17:13)
[2024-02-08 08:56] LABS: CALCIUM 8.3 mg/dL (8.5-10.1); CREATININE SERUM 1.38 mg/dL (0.70-1.30); GFR 49.83; POTASSIUM 4.12 mEq/L (3.5-5.1)
[2024-02-08 09:18] VITALS: BP 102/59; BP 149/67; O2SAT 96
[2024-02-08] MEDS ORDERED: MIDAZOLAM HCL 2 MG/2 ML VIAL IV STA (13:06)
[2024-02-08 19:11] VITALS: BP 131/81
[2024-02-09 03:49] VITALS: BP 108/55; O2SAT 98
[2024-02-09] MEDS ORDERED: FAMOTIDINE/PF 20 MG/2 ML VIAL ONE ×2 (07:52→20:53)
[2024-02-09 10:14] VITALS: BP 131/67
[2024-02-09 10:18] VITALS: BP 116/62
[2024-02-09 19:15] VITALS: BP 104/63; O2SAT 100
[2024-02-10 02:15] VITALS: BP 98/55; O2SAT 98
[2024-02-10] MEDS ORDERED: FAMOTIDINE/PF 20 MG/2 ML VIAL ONE (08:08)
[2024-02-10 09:06] LABS: CALCIUM 7.6 mg/dL (8.5-10.1); CREATININE SERUM 1.06 mg/dL (0.70-1.30); GFR 67.57; POTASSIUM 4.56 mEq/L (3.5-5.1)
[2024-02-10 09:34] VITALS: BP 120/72
== END 2024-02-10 17:03 | disposition home or self-care (01) | DRG 684 ==
LOC: ER 10:41 → MEDJ 20:49 → SEC-K 20:49 → MEDJ 23:05
PROVIDERS: General Practice; Specialist; ADMIT Internal Medicine; ATTEND Internal Medicine
PROC: BW21ZZZ Computerized Tomography (CT Scan) of Abdomen and Pelvis (ICD-10-PCS; 2024-02-05)
PROC: 0DJ08ZZ Inspection of Upper Intestinal Tract, Via Natural or Artificial Opening Endoscopic (ICD-10-PCS; principal; 2024-02-08)
DX: N17.9 Acute kidney failure, unspecified (principal); I10 Essential (primary) hypertension; E86.0 Dehydration; R63.0 Anorexia

== ENCOUNTER 2024-02-17 11:37 | Inpatient (IN) | payer OTHER ==
[~2024-02-17] VITALS: Ht 152.4 cm; Wt 65.8 kg
--- NOTE | 2024-02-17 11:46 | NUR ---
PACIENTE ALERTA Y ORIENTADO X 3. REFIERE 1 SEMANA CON VOMITOS, HOY VOMITOS X 6, INDICA POCA ORINA, FALTA DE APETITO Y DREANADO LIQUDO AMARILLO POR LA ILIOSTOMIA REALIZADA EL MES DE .
[2024-02-17] MEDS ORDERED: FAMOtidine 10 MG/ML (4ML VIAL) IV ONE (12:45)
[2024-02-17] MEDS ORDERED: 0.9 % SODIUM CHLORIDE 1,000 ML IV ONE (12:45)
[2024-02-17] MEDS ORDERED: ONDANSETRON HCL 2 MG/ML VIAL IV ONE (12:45)
[2024-02-17 16:14] LABS: HEMATOCRIT 40.3 % (39.0-48.0); HEMOGLOBIN 13.9 g/dL (13-16.00); MEAN CELL VOLUME 89.8 fL (80.0-100.00); MEAN CORPUSCULAR HGB CONC 34.5 g/dl (32.0-36.0); PLATELET COUNT 358 K/uL (150-450); RED BLOOD COUNT 4.49 M/uL (4.00-6.00); RED CELL DISTRIBUTION WIDTH 13.8 % (11.5-14.5)
[2024-02-17] MEDS ORDERED: FAMOTIDINE/PF 20 MG/2 ML VIAL ONE (16:30)
[2024-02-17] MEDS ORDERED: ONDANSETRON HCL 2 MG/ML VIAL ONE (16:30)
--- NOTE | 2024-02-17 17:13 | NUR ---
PACIENTE EVALUADO POR MD LIRAIEN ORDENA TRATAMIENTO MEDICO, SE LE ORIENTA A PACIENTE SORBE EL MISMO Y VERBALIZA ENTENDER, SE LE COLECTAN MUESTRAS Y SE CANALIZA BAJO MEDIDAS ASEPTICAS. SE LE ADMINISTRAN MEDICAMENTOS MALU ORDEN Y BAJO MEDIDAS ASPETICAS. PACIENTE TOLERA Y NO PRESENTA REACCION ADVERSA.
[2024-02-17 17:16] LABS: ALBUMIN 4.4 gm/dL (3.4-5.0); BILIRUBIN TOTAL 0.33 mg/dL (0.3-1.2); CALCIUM 10.3 mg/dL (8.5-10.1); GFR 8.59; GLOBULINA 5.3 G/DL (2.4-3.5); POTASSIUM 5.7 mEq/L (3.5-5.1); TOTAL PROTEIN 9.7 gm/dL (6.4-8.2)
[2024-02-17 17:27] LABS: CREATININE SERUM 6.33 mg/dL (0.70-1.30)
[2024-02-17 17:54] LABS: URINE APPEARANCE Cloudy; URINE BILIRRUBIN Small (NEGATIVE); URINE BLOOD Negative; URINE COLOR Dark Yellow; URINE GLUCOSE Negative (NEGATIVE); URINE KETONE Trace (NEGATIVE); URINE LEUKOCYTE Trace; URINE NITRATE Negative; URINE PROTEIN 30 (NEGATIVE); URINE UROBILINOGEN 0.2 E.U./dl
[2024-02-17 17:58] LABS: URINE BACTERIA 4886.1 uL (0.0-1933); URINE CAST 10.38 uL (0.0-1.40); URINE EPITHELIAL CELLS 53.1 uL (0.0-38.8); URINE RBC 30.2 uL (0.0-20.8); URINE WBC 71.8 uL (0.0-23.2)
[2024-02-17 18:12] LABS: URINE CRYSTALS MODERATE /HPF
[2024-02-17] MEDS ORDERED: CEFTRIAXONE SODIUM 2,000 MG in 0.9 % SODIUM CHLORIDE 100 ML IV SCH (21:26)
[2024-02-17] MEDS ORDERED: ONDANSETRON HCL 4 MG in 0.9 % SODIUM CHLORIDE 50 ML IV PRN (21:30)
[2024-02-17] MEDS ORDERED: 0.9 % SODIUM CHLORIDE 1,000 ML IV SCH (21:30)
[2024-02-17] MEDS ORDERED: ACETAMINOPHEN 500 MG GEL..CAP PO PRN (21:30)
[2024-02-17 23:27] LABS: PHOSPHOROUS 6.8 mg/dL (2.5-4.9)
[2024-02-17 23:41] LABS: MAGNESIUM 1.4 mg/dL (1.8-2.4)
[2024-02-18 02:09] LABS: INR 1.07; PROTHROMBIN TIME 11.6 SECONDS (9.0-11.5)
[2024-02-18 07:17] LABS: ALBUMIN 3.5 gm/dL (3.4-5.0); BILIRUBIN TOTAL 0.25 mg/dL (0.3-1.2); CALCIUM 8.7 mg/dL (8.5-10.1); GFR 9.34; GLOBULINA 4.1 G/DL (2.4-3.5); POTASSIUM 4.82 mEq/L (3.5-5.1); TOTAL PROTEIN 7.6 gm/dL (6.4-8.2)
[2024-02-18 08:00] VITALS: BP 128/61; O2SAT 100
[2024-02-18 08:04] LABS: CREATININE SERUM 5.89 mg/dL (0.70-1.30)
[2024-02-18] MEDS ORDERED: FAMOTIDINE/PF 20 MG in 0.9 % SODIUM CHLORIDE 8 ML IV PUSH SCH (09:00)
[2024-02-18] MEDS ORDERED: VITAMIN B COMPLEX/LYSINE 1 ML ML PO SCH (09:00)
[2024-02-18] MEDS ORDERED: TAMSULOSIN HCL 0.4 MG CAP PO SCH (09:00)
[2024-02-18] MEDS ORDERED: AMINO ACIDS/PROTEIN HYDROLYS 30 ML BLIST.PACK PO SCH (09:00)
[2024-02-18] MEDS ORDERED: MULTIVIT INFUSN,ADULT 4,VIT K 10 ML in DEXTROSE 5 % IN WATER 500 ML IV SCH (12:00)
[2024-02-18 14:00] VITALS: BP 154/85
[2024-02-18] MEDS ORDERED: MAGNESIUM SULFATE IN WATER 50 ML IV NR (15:00)
[2024-02-18 17:58] VITALS: BP 130/67; O2SAT 97
[2024-02-19 00:42] VITALS: BP 117/60; O2SAT 98
[2024-02-19 08:21] VITALS: BP 116/61; O2SAT 99
[2024-02-19 13:40] LABS: BILIRUBIN TOTAL 0.2 mg/dL (0.3-1.2); CALCIUM 8.4 mg/dL (8.5-10.1); CREATININE SERUM 3.3 mg/dL (0.70-1.30); GFR 18.22; GLOBULINA 3.4 G/DL (2.4-3.5); POTASSIUM 4.4 mEq/L (3.5-5.1); TOTAL PROTEIN 6.4 gm/dL (6.4-8.2)
[2024-02-19 16:00] VITALS: BP 102/57; O2SAT 98
[2024-02-19] MEDS ORDERED: LORATADINE 10 MG TABLET PO SCH (21:00)
[2024-02-20 00:47] VITALS: BP 119/59; O2SAT 100
[2024-02-20 07:04] LABS: HEMATOCRIT 30.2 % (39.0-48.0); HEMOGLOBIN 10.3 g/dL (13-16.00); MEAN CELL VOLUME 90.2 fL (80.0-100.00); MEAN CORPUSCULAR HEMOGLOBIN 30.7 pg (27.00-32.0); MEAN CORPUSCULAR HGB CONC 34.1 g/dl (32.0-36.0); PLATELET COUNT 203 K/uL (150-450); RED BLOOD COUNT 3.34 M/uL (4.00-6.00); RED CELL DISTRIBUTION WIDTH 13.5 % (11.5-14.5)
[2024-02-20 08:09] VITALS: BP 112/56; O2SAT 95
[2024-02-20 08:20] LABS: ALBUMIN 2.8 gm/dL (3.4-5.0); BILIRUBIN TOTAL 0.21 mg/dL (0.3-1.2); CALCIUM 7.9 mg/dL (8.5-10.1); CREATININE SERUM 2.05 mg/dL (0.70-1.30); GFR 31.56; GLOBULINA 3.5 G/DL (2.4-3.5); POTASSIUM 3.77 mEq/L (3.5-5.1); PROSTATIC SPECIFIC ANTIGEN 2.63 NG/ML (0.010-4.00); TOTAL PROTEIN 6.3 gm/dL (6.4-8.2)
[2024-02-20] MEDS ORDERED: NA PHOS,M-B/NA PHOS,DI-BA 1 BOTTLE ENEMA RECTAL ONE (14:14)
[2024-02-20 15:30] VITALS: BP 144/70; O2SAT 100
[2024-02-20] MEDS ORDERED: NA PHOS,M-B/NA PHOS,DI-BA 1 BOTTLE ENEMA RECTAL NR (17:00)
[2024-02-21] VITALS: BP 132/62; O2SAT 98
[2024-02-21 06:53] LABS: HEMATOCRIT 28.8 % (39.0-48.0); HEMOGLOBIN 10.1 g/dL (13-16.00); MEAN CELL VOLUME 89.3 fL (80.0-100.00); MEAN CORPUSCULAR HEMOGLOBIN 31.3 pg (27.00-32.0); PLATELET COUNT 204 K/uL (150-450); RED BLOOD COUNT 3.23 M/uL (4.00-6.00); RED CELL DISTRIBUTION WIDTH 13.5 % (11.5-14.5)
[2024-02-21 07:28] LABS: ALBUMIN 2.8 gm/dL (3.4-5.0); BILIRUBIN TOTAL 0.19 mg/dL (0.3-1.2); CALCIUM 7.8 mg/dL (8.5-10.1); CREATININE SERUM 1.39 mg/dL (0.70-1.30); GFR 49.42; GLOBULINA 3.3 G/DL (2.4-3.5); POTASSIUM 3.65 mEq/L (3.5-5.1); TOTAL PROTEIN 6.1 gm/dL (6.4-8.2)
[2024-02-21 08:00] VITALS: BP 124/65; O2SAT 100
[2024-02-21] MEDS ORDERED: MIDAZOLAM HCL 2 MG/2 ML VIAL IV ONE (13:30)
[2024-02-21] MEDS ORDERED: fentaNYL CITRATE 50 MCG/ML AMPUL IV ONE (13:30)
[2024-02-21] MEDS ORDERED: DIPHENHYDRAMINE HCL 50 MG/ML VIAL 1ML IV NR (14:00)
[2024-02-21] MEDS ORDERED: SODIUM CHLORIDE 0.45 % 1,000 ML IV SCH (14:15)
[2024-02-21 15:40] VITALS: BP 118/69; O2SAT 98
[2024-02-21] MEDS ORDERED: MEPERIDINE HCL/PF 25 MG/ML VIAL IV PRN (16:45)
[2024-02-22] VITALS: BP 129/64; O2SAT 99
[2024-02-22 08:00] VITALS: BP 155/76; O2SAT 100
[2024-02-22 15:50] VITALS: BP 130/73; O2SAT 97
[2024-02-22] MEDS ORDERED: FAMOtidine 20 MG TABLET PO SCH (17:00)
[2024-02-23 00:44] VITALS: BP 129/61; O2SAT 100
[2024-02-23 08:00] VITALS: BP 148/68; O2SAT 100
[2024-02-23 16:37] VITALS: BP 158/74; O2SAT 100
[2024-02-23 23:47] VITALS: BP 124/63; O2SAT 100
[2024-02-24 08:00] VITALS: BP 130/72; O2SAT 100
[2024-02-24 08:07] LABS: ALBUMIN 2.7 gm/dL (3.4-5.0); BILIRUBIN TOTAL 0.29 mg/dL (0.3-1.2); CALCIUM 7.8 mg/dL (8.5-10.1); CREATININE SERUM 1.05 mg/dL (0.70-1.30); GFR 68.31; GLOBULINA 3.3 G/DL (2.4-3.5); POTASSIUM 3.51 mEq/L (3.5-5.1)
[2024-02-24] MEDS ORDERED: LOPERAMIDE HCL 2 MG CAPSULE PO NR (12:00)
[2024-02-24 16:32] VITALS: BP 157/81; O2SAT 98
[2024-02-25 00:49] VITALS: BP 109/59; O2SAT 96
[2024-02-25] MEDS ORDERED: SODIUM CHLORIDE 0.45 % 1,000 ML IV SCH (08:04)
[2024-02-25 08:55] VITALS: BP 139/70; O2SAT 100
[2024-02-25 17:30] VITALS: BP 130/69; O2SAT 100
[2024-02-25] MEDS ORDERED: DEXTROSE 5 % IN WATER 1,000 ML IV SCH (17:30)
[2024-02-26 00:35] VITALS: BP 112/67; O2SAT 97
[2024-02-26 09:23] VITALS: BP 113/63; O2SAT 97
[2024-02-26 16:00] VITALS: BP 139/77; O2SAT 100
[2024-02-27 00:17] VITALS: BP 130/70; O2SAT 99
[2024-02-27 07:38] LABS: HEMATOCRIT 26.7 % (39.0-48.0); HEMOGLOBIN 9.3 g/dL (13-16.00); MEAN CELL VOLUME 90.4 fL (80.0-100.00); MEAN CORPUSCULAR HEMOGLOBIN 31.5 pg (27.00-32.0); MEAN CORPUSCULAR HGB CONC 34.9 g/dl (32.0-36.0); PLATELET COUNT 231 K/uL (150-450); RED BLOOD COUNT 2.95 M/uL (4.00-6.00); RED CELL DISTRIBUTION WIDTH 14.1 % (11.5-14.5)
[2024-02-27 08:00] VITALS: BP 140/70; O2SAT 100
[2024-02-27 08:11] LABS: ALBUMIN 2.6 gm/dL (3.4-5.0); BILIRUBIN TOTAL 0.25 mg/dL (0.3-1.2); CREATININE SERUM 0.92 mg/dL (0.70-1.30); FERRITIN 682.6 NG/ML (26-388); GFR 79.57; GLOBULINA 3.3 G/DL (2.4-3.5); POTASSIUM 3.51 mEq/L (3.5-5.1); TOTAL PROTEIN 5.9 gm/dL (6.4-8.2)
[2024-02-27] MEDS ORDERED: FUROsemide 20 MG/2 ML VIAL IV SCH (13:15)
[2024-02-27 16:00] VITALS: BP 131/75; O2SAT 98
[2024-02-27 23:59] VITALS: BP 121/71; O2SAT 99
[2024-02-28 03:40] LABS: HEMATOCRIT 35.3 % (39.0-48.0); MEAN CELL VOLUME 90.7 fL (80.0-100.00); MEAN CORPUSCULAR HEMOGLOBIN 30.8 pg (27.00-32.0); PLATELET COUNT 263 K/uL (150-450); RED BLOOD COUNT 3.89 M/uL (4.00-6.00); RED CELL DISTRIBUTION WIDTH 14.1 % (11.5-14.5)
[2024-02-28 08:41] VITALS: BP 121/77; O2SAT 99
[2024-02-28 16:00] VITALS: BP 136/79; O2SAT 95
[2024-02-28] MEDS ORDERED: LORATADINE 10 MG TABLET PO SCH (21:00)
[2024-02-29 00:07] VITALS: BP 117/72; O2SAT 99
[2024-02-29] MEDS ORDERED: OxyCODONE HCL 5 MG TABLET (ROXICODONE) PO PRN (12:15)
[2024-02-29] MEDS ORDERED: RINGERS SOLUTION,LACTATED 1,000 ML IV SCH (12:15)
[2024-02-29] MEDS ORDERED: MORPHINE SULFATE 4 MG/ML CARTRIDGE IV PRN (12:15)
[2024-02-29] MEDS ORDERED: MORPHINE SULFATE 4 MG/ML VIAL IV ONE ×3 (12:30→14:00)
[2024-02-29] MEDS ORDERED: HYOSCYAMINE SULFATE 0.125 MG TAB.SUBL SL SCH (13:00)
[2024-02-29] MEDS ORDERED: METRONIDAZOLE/SODIUM CHLORIDE 100 ML IV SCH (13:00)
[2024-02-29] MEDS ORDERED: LACTOBACILLUS ACIDOPHILUS 1 CAP CAP PO NR (13:00)
[2024-02-29] MEDS ORDERED: CIPROFLOXACIN IN 5 % DEXTROSE 400 MG/200 ML PIGGYBAG IV NR (13:00)
[2024-02-29] MEDS ORDERED: CIPROFLOXACIN IN 5 % DEXTROSE 400 MG/200 ML PIGGYBAG IV ONE (13:32)
[2024-02-29] MEDS ORDERED: METRONIDAZOLE/SODIUM CHLORIDE 500 MG/100 ML PIGGYBACK IV ONE (13:32)
[2024-02-29 16:37] VITALS: BP 101/53; O2SAT 96
[2024-02-29] MEDS ORDERED: ACETAMINOPHEN 500 MG GEL..CAP PO SCH (18:00)
[2024-02-29] MEDS ORDERED: CIPROFLOXACIN IN 5 % DEXTROSE 200 ML IV SCH (21:00)
[2024-03-01 00:09] VITALS: BP 108/53; O2SAT 97
[2024-03-01 07:48] LABS: HEMOGLOBIN 11.3 g/dL (13-16.00); MEAN CELL VOLUME 90.1 fL (80.0-100.00); MEAN CORPUSCULAR HEMOGLOBIN 30.9 pg (27.00-32.0); MEAN CORPUSCULAR HGB CONC 34.3 g/dl (32.0-36.0); PLATELET COUNT 234 K/uL (150-450); RED BLOOD COUNT 3.66 M/uL (4.00-6.00); RED CELL DISTRIBUTION WIDTH 14.7 % (11.5-14.5)
[2024-03-01] MEDS ORDERED: ONDANSETRON HCL 4 MG in 0.9 % SODIUM CHLORIDE 50 ML IV PRN (08:15)
[2024-03-01 08:27] LABS: CALCIUM 8.5 mg/dL (8.5-10.1); CREATININE SERUM 1.03 mg/dL (0.70-1.30); GFR 69.84; PHOSPHOROUS 2.2 mg/dL (2.5-4.9); POTASSIUM 3.97 mEq/L (3.5-5.1)
[2024-03-01] MEDS ORDERED: LACTOBACILLUS ACIDOPHILUS 1 CAP CAP PO SCH (09:00)
[2024-03-01 09:03] VITALS: BP 115/71; O2SAT 97
[2024-03-01 09:40] LABS: MAGNESIUM 0.8 mg/dL (1.8-2.4)
[2024-03-01] MEDS ORDERED: MAGNESIUM SULFATE IN WATER 4 GM/100 ML PIGGYBACK IV NR (10:00)
[2024-03-01] MEDS ORDERED: MAGNESIUM SULFATE IN WATER 4 GM/100 ML PIGGYBACK IV STA (10:00)
[2024-03-01] MEDS ORDERED: POTASSIUM PHOS,M-BASIC-D-BASIC 9 MM in 0.9 % SODIUM CHLORIDE 250 ML IV NR (12:00)
[2024-03-01] MEDS ORDERED: PANTOPRAZOLE SODIUM 40 MG TABLET.DR PO SCH (12:00)
[2024-03-01 16:00] VITALS: BP 125/61; O2SAT 95
[2024-03-01] MEDS ORDERED: ENOXAPARIN SODIUM 40 MG/0.4 ML SYRINGE SUBCUTANEO SCH (17:00)
[2024-03-02 00:41] VITALS: BP 114/74; O2SAT 98
[2024-03-02 08:00] VITALS: BP 144/77; O2SAT 95
[2024-03-02] MEDS ORDERED: ENOXAPARIN SODIUM 40 MG/0.4 ML SYRINGE SUBCUTANEO SCH (09:00)
[2024-03-02] MEDS ORDERED: PANTOPRAZOLE SODIUM 40 MG/VIAL VIAL IV ONE (10:45)
[2024-03-02] MEDS ORDERED: PANTOPRAZOLE SODIUM 40 MG/VIAL VIAL IV SCH (12:00)
[2024-03-02 16:00] VITALS: BP 132/61; O2SAT 95
[2024-03-03 00:41] VITALS: BP 134/63; O2SAT 97
[2024-03-03 08:21] VITALS: BP 146/68; O2SAT 97
[2024-03-03 16:52] VITALS: BP 142/64; O2SAT 98
[2024-03-04 00:30] VITALS: BP 148/70; O2SAT 98
[2024-03-04 07:30] VITALS: BP 141/76; O2SAT 97
[2024-03-04] MEDS ORDERED: PANTOPRAZOLE SODIUM 40 MG TABLET.DR PO SCH (07:30)
[2024-03-04 14:43] LABS: HEMOGLOBIN 10.8 g/dL (13-16.00); MEAN CELL VOLUME 91.8 fL (80.0-100.00); MEAN CORPUSCULAR HEMOGLOBIN 30.9 pg (27.00-32.0); MEAN CORPUSCULAR HGB CONC 33.6 g/dl (32.0-36.0); PLATELET COUNT 250 K/uL (150-450); RED BLOOD COUNT 3.49 M/uL (4.00-6.00); RED CELL DISTRIBUTION WIDTH 14.5 % (11.5-14.5)
[2024-03-04 15:19] LABS: CALCIUM 8.8 mg/dL (8.5-10.1); CREATININE SERUM 0.85 mg/dL (0.70-1.30); GFR 87.17; MAGNESIUM 1.5 mg/dL (1.8-2.4); POTASSIUM 4.21 mEq/L (3.5-5.1)
[2024-03-04 15:32] LABS: PHOSPHOROUS 1.6 mg/dL (2.5-4.9)
[2024-03-04] MEDS ORDERED: POTASSIUM PHOS,M-BASIC-D-BASIC 15 MM in 0.9 % SODIUM CHLORIDE 250 ML IV NR (15:45)
[2024-03-04] MEDS ORDERED: MAGNESIUM SULFATE IN WATER 4 GM/100 ML PIGGYBACK IV NR (15:45)
[2024-03-04 16:00] VITALS: BP 149/75; O2SAT 99
[2024-03-04] MEDS ORDERED: CHOLESTYRAMINE/ASPARTAME LIGHT 4 G/PKT PACKET PO SCH (17:00)
[2024-03-05] VITALS: BP 137/65; O2SAT 96
[2024-03-05 10:02] VITALS: BP 153/73; O2SAT 97
[2024-03-05 16:00] VITALS: BP 149/79; O2SAT 98
[2024-03-06 00:57] VITALS: BP 138/67; O2SAT 97
[2024-03-06 08:54] VITALS: BP 150/76; O2SAT 97
[2024-03-06] MEDS ORDERED: LEVSIN0.125 MG PO ×2 (09:20)
[2024-03-06] MEDS ORDERED: INTESTINEX680 M1 PO ×2 (09:22→13:29)
[2024-03-06] MEDS ORDERED: LEVSIN/SL0.125 MG SL (13:29)
[2024-03-06] MEDS ORDERED: PEPCID AC20 MG PO (13:29)
[2024-03-06] MEDS ORDERED: TRAM1TAB98 PO (13:29)
== END 2024-03-06 15:23 | disposition home or self-care (01) | DRG 982 ==
LOC: ER 11:39 → SURG 21:25
PROVIDERS: General Practice; Surgery; ADMIT Surgery; ATTEND Surgery
PROC: BT4JZZZ Ultrasonography of Kidneys and Bladder (ICD-10-PCS; 2024-02-17)
PROC: 02HV33Z Insertion of Infusion Device into Superior Vena Cava, Percutaneous Approach (ICD-10-PCS; 2024-02-18)
PROC: 0DJD8ZZ Inspection of Lower Intestinal Tract, Via Natural or Artificial Opening Endoscopic (ICD-10-PCS; 2024-02-22)
PROC: BW2GYZZ Computerized Tomography (CT Scan) of Pelvic Region using Other Contrast (ICD-10-PCS; 2024-02-25)
PROC: 30233N1 Transfusion of Nonautologous Red Blood Cells into Peripheral Vein, Percutaneous Approach (ICD-10-PCS; 2024-02-27)
PROC: 0DBB4ZZ Excision of Ileum, Percutaneous Endoscopic Approach (ICD-10-PCS; 2024-02-29)
PROC: 0DQ84ZZ Repair Small Intestine, Percutaneous Endoscopic Approach (ICD-10-PCS; principal; 2024-02-29 11:00)
DX: N17.9 Acute kidney failure, unspecified (principal); E87.0 Hyperosmolality and hypernatremia; K94.19 Other complications of enterostomy; E86.0 Dehydration; K64.8 Other hemorrhoids; K66.0 Peritoneal adhesions (postprocedural) (postinfection); E87.5 Hyperkalemia; D64.9 Anemia, unspecified; E78.5 Hyperlipidemia, unspecified; F32.9 Major depressive disorder, single episode, unspecified; I12.9 Hypertensive chronic kidney disease with stage 1 through stage 4 chronic kidney disease, or unspecified chronic kidney disease; N18.9 Chronic kidney disease, unspecified